=== PATIENT | male | born 1980 ===

== ENCOUNTER 2016-10-30 05:54 | Emergency (ER) | payer MEDICARE ==
[2016-10-30] MEDS ORDERED: Tetanus/Diphtheria Toxoids 0.5 ml Syringe IM ONE (06:23)
[2016-10-30] MEDS ORDERED: Lidocaine 1% w Epi 1:100,000 Inj INJ STA (06:24)
--- NOTE | 2016-10-30 06:35 | C.PDOC ---
History Of Present Illness 36 y/o M c history of cerebral palsy p/w facial laceration suffered this morning. Patient fell in shower and struck face. He denies LOC, lethargy, nausea , vomiting, lightheadedness. Denies diplopia, facial numbness, or malocclusion of jaw. - HPI Time Seen by Provider: 10/30/16 06:22 Chief Complaint (Nursing): Trauma Past Medical History Vital Signs: Last Vital Signs Temp 98.4 F 10/30/16 06:04 Pulse 90 10/30/16 06:04 Resp 14 10/30/16 06:04 BP 150/82 10/30/16 06:04 Pulse Ox 98 10/30/16 06:35 Family History: States: No Known Family Hx - Social History Hx Tobacco Use: No Hx Alcohol Use: No Hx Substance Use: No - Immunization History Hx Tetanus Toxoid Vaccination: No Hx Influenza Vaccination: No Hx Pneumococcal Vaccination: No Review Of Systems Except As Marked, All Systems Reviewed And Found Negative. Constitutional: Negative for: Fever Respiratory: Negative for: Shortness of Breath Gastrointestinal: Negative for: Vomiting Physical Exam - Physical Exam Appears: No Acute Distress Skin: Other (4cm laceration to R cheek not involving eye) Eye(s): bilateral: PERRL, EOMI (no diplopia) Oral Mucosa: Moist Neck: No Midline Cervical Tenderness Chest: No Tenderness Cardiovascular: Rhythm Regular Respiratory: No Accessory Muscle Use Gastrointestinal/Abdominal: Soft, No Tenderness Back: No Vertebral Tenderness Extremity: Normal ROM, No Tenderness Neurological/Psych: Normal Speech, Normal Cognition ED Course And Treatment O2 Sat by Pulse Oximetry: 98 Laceration - Laceration Repair No standard instances Wound Length (In cm): 4 Description Of Wound: Linear Anesthesia: Lidocaine 2% Wound Examination: No FB With Wound Exploration Wound Closure: Suture (5-0 nylon) Suture Technique And Material Used: Interrupted Wound Complexity: Simple (bacitracin applied and dressed) Medical Decision Making Medical Decision Making: Tdap updated. Disposition - Disposition Disposition: HOME/ ROUTINE Disposition Time: 06:35 Condition: STABLE Additional Instructions: Return in 5 days for suture removal. Instructions: Facial Laceration (ED) - Clinical Impression Clinical Impression: Laceration
[2016-10-30] MEDS ORDERED: Bacitracin 500 Units/gm Oint Foilpak UD ONE (06:40)
[2016-10-30 07:02] VITALS: BP 135/81; PULSE 75; RESP 18; TEMP 98.5; O2SAT 99
== END 2016-10-30 07:01 | disposition home or self-care (01) ==
LOC: C.ER 05:54
DX: S01.411A Laceration without foreign body of right cheek and temporomandibular area, initial encounter (principal); W18.39XA Other fall on same level, initial encounter; Y93.E1 Activity, personal bathing and showering; Y92.89 Other specified places as the place of occurrence of the external cause

== ENCOUNTER 2016-11-04 00:59 | Emergency (ER) | payer MEDICARE ==
[2016-11-04 01:10] VITALS: BP 156/84; PULSE 80; TEMP 97.6; O2SAT 99
--- NOTE | 2016-11-04 01:22 | C.PDOC ---
Time Seen by Provider: 11/04/16 01:12 Chief Complaint (Nursing): Wound Check History Per: Patient History/Exam Limitations: no limitations Onset/Duration Of Symptoms: Days Ago Current Symptoms Are (Timing): Still Present Location Of Injury: Right: Face Quality Of Symptoms: denies: Painful, Itching, Swollen, Draining Severity: None Pain Scale Rating Of: 0 Recent travel outside of the [place]: No Additional History Per: Patient Past Medical History Reviewed: Historical Data, Nursing Documentation, Vital Signs Vital Signs: Last Vital Signs Temp 97.6 F 11/04/16 01:05 Pulse 80 11/04/16 01:05 Resp 14 11/04/16 01:05 BP 156/84 H 11/04/16 01:05 Pulse Ox 99 11/04/16 01:05 Family History: States: No Known Family Hx - Social History Hx Tobacco Use: No Hx Alcohol Use: No Hx Substance Use: No - Immunization History Hx Tetanus Toxoid Vaccination: No Hx Influenza Vaccination: No Hx Pneumococcal Vaccination: No Review Of Systems Constitutional: Negative for: Fever, Chills Eyes: Positive for: Other (r subconjuntival hemorrhage) Skin: Positive for: Bruising (r cheeck), Other (sutures right cheek) Neurological: Negative for: Weakness, Numbness Psych: Negative for: Anxiety Physical Exam - Physical Exam Appears: Non-toxic, No Acute Distress Skin: Warm, Dry, Ecchymosis (r cheeck, stiches in place) Head: Normacephalic Eye(s): right: Other (small subconjunctival hemorrhage) Oral Mucosa: Moist Neurological/Psych: Oriented x3, Normal Speech, Normal Cognition Gait: Steady ED Course And Treatment O2 Sat by Pulse Oximetry: 99 Pulse Ox Interpretation: Normal Reevaluation Time: 01:24 Reassessment Condition: Improved Disposition Counseled Patient/Family Regarding: Studies Performed, Diagnosis - Disposition Disposition Time: 01:20 Condition: FAIR Instructions: Facial Laceration (ED), Subconjunctival Hemorrhage (ED) - Clinical Impression Clinical Impression: Visit for wound check
[2016-11-04 01:37] VITALS: RESP 20
== END 2016-11-04 01:36 | disposition home or self-care (01) ==
LOC: C.ER 00:59
DX: Z48.00 Encounter for change or removal of nonsurgical wound dressing (principal)

== ENCOUNTER 2016-12-22 15:37 | Emergency (ER) | payer MEDICARE ==
[2016-12-22 17:35] LABS: BASO % 0.7 % (0.0-2.0); EOS # 0.1 K/uL (0.0-0.7); EOS % 1.7 % (0.0-4.0); HEMATOCRIT 48.1 % (35.0-51.0); LYMPH % 29.2 % (20.0-40.0); MEAN CELL VOLUME 86.1 fL (80.0-94.0); MEAN CORPUSCULAR HEMOGLOBIN 28.5 pg (27.0-31.0); MEAN CORPUSCULAR HGB CONC 33.1 g/dL (33.0-37.0); MEAN PLATELET VOLUME 8.2 fL (7.2-11.7); MONO # 0.6 K/uL (0.0-0.8); MONO % 8.3 % (0.0-10.0); NRBC % 0.1 % (0.0-2.0); WHITE BLOOD COUNT 6.9 K/uL (4.8-10.8)
[2016-12-22 17:45] LABS: CHLORIDE 102 mmol/L (98-107); POTASSIUM 4.2 mmol/L (3.6-5.2); SODIUM 141 mmol/L (132-148)
[2016-12-22 17:48] LABS: BLOOD UREA NITROGEN 18 mg/dL (9-20); CALCIUM 9.4 mg/dl (8.6-10.4); CARBON DIOXIDE 27 mmol/L (22-30); GFR AFRICAN-AMERICAN > 60; GLUCOSE,RANDOM 95 mg/dL (75-110)
[2016-12-22 17:49] LABS: MAGNESIUM 2.3 mg/dL (1.6-2.3)
[2016-12-22 17:54] LABS: PARTIAL THROMBOPLASTIN TIME 39 SECONDS (21-34)
--- NOTE | 2016-12-22 18:01 | C.PDOC ---
History Of Present Illness Pt had an episode while driving today where he had anxiety with dyspnea and muscle cramps/tingling. Pt had a similar episode yesterday that resolved spontaneously. Time Seen by Provider: 12/22/16 16:49 Chief Complaint (Nursing): Anxiety History Per: Patient Onset/Duration Of Symptoms: Sudden Onset ([employer]) Current Symptoms Are (Timing): Better Severity: Moderate Associated Symptoms: Anxiety, Tingling In Hands Or Face, Musle Spasms In Hands Or Feet Additional History Per: Prior Records Past Medical History Reviewed: Historical Data, Nursing Documentation, Vital Signs Vital Signs: Last Vital Signs Temp 98.7 F 12/22/16 15:47 Pulse 105 H 12/22/16 15:47 Resp 20 12/22/16 15:47 BP 111/70 12/22/16 15:47 Pulse Ox 96 12/22/16 18:06 - Medical History PMH: No Chronic Diseases Family History: States: Unknown Family Hx - Social History Hx Tobacco Use: No Hx Alcohol Use: No Hx Substance Use: No - Immunization History Hx Tetanus Toxoid Vaccination: No Hx Influenza Vaccination: No Hx Pneumococcal Vaccination: No Review Of Systems Except As Marked, All Systems Reviewed And Found Negative. Constitutional: Negative for: Fever Respiratory: Negative for: Hemoptysis Gastrointestinal: Negative for: Vomiting, Abdominal Pain Musculoskeletal: Negative for: Neck Pain, Back Pain, Leg Pain Skin: Negative for: Rash Neurological: Negative for: Weakness, Seizures, Altered Mental Status, Headache Physical Exam - Physical Exam Appears: Non-toxic, No Acute Distress Skin: Normal Color, Warm, Dry, No Rash Head: Atraumatic, Normacephalic Eye(s): bilateral: PERRL, EOMI Neck: Normal ROM, Supple Cardiovascular: Rhythm Regular Respiratory: Normal Breath Sounds, No Accessory Muscle Use Gastrointestinal/Abdominal: Soft, No Tenderness Back: No CVA Tenderness Extremity: Normal ROM, No Pedal Edema, No Calf Tenderness Neurological/Psych: Oriented x3, Normal Speech, Normal Cognition, No Cerebellar Signs, Normal Motor, Normal Sensation ED Course And Treatment - Laboratory Results Result Diagrams: 12/22/16 17:28 12/22/16 17:28 Lab Interpretation: No Acute Changes ECG: Interpreted By Me, Viewed By Me ECG Rhythm: Sinus Rhythm, Nonspecific Changes ECG Interpretation: No Acute Changes Rate From EC O2 Sat by Pulse Oximetry: 96 Pulse Ox Interpretation: Normal Progress Note: Pt is now completely asymptomatic. Reassessment Condition: Improved Disposition Counseled Patient/Family Regarding: Studies Performed, Diagnosis, Need For Followup - Disposition Referrals: Francisco Davila MD [Non-Staff] - Disposition: HOME/ ROUTINE Disposition Time: 18:07 Condition: IMPROVED Additional Instructions: Follow up with your doctor for further evaluation and treatment. Return to the ER if you pass out, develop worsening of symptoms or if you have any other concerns. Instructions: Panic Attack (ED) - Clinical Impression Clinical Impression: Anxiety attack
[2016-12-22 18:46] VITALS: BP 145/86; PULSE 79; RESP 18; TEMP 98.1; O2SAT 97
--- NOTE | 2016-12-23 17:41 | CARD ---
APPROVED REPORT EKG Measurement Heart [id number] <Conclusion> Normal sinus rhythm Possible Inferior infarct, age undetermined Abnormal ECG
== END 2016-12-22 18:46 | disposition home or self-care (01) ==
LOC: C.ER 15:37
DX: F41.9 Anxiety disorder, unspecified (principal)